=== PATIENT | male | born 1970 | race Two or more races ===

== ENCOUNTER → 2016-10-16 | Outpatient (REF) | payer OTHER ==
[2016-10-16 13:37] LABS: ANION GAP 10 MEQ/L (8-16); BLOOD UREA NITROGEN 17 MG/DL (7-18); CALCIUM LEVEL 9.2 MG/DL (8.5-10.1); CARBON DIOXIDE LEVEL 30 MEQ/L (21-32); CHLORIDE LEVEL 102 MEQ/L (98-107); CHOLESTEROL LEVEL 224 MG/DL (<200); CREATININE FOR GFR 0.85 MG/DL (0.70-1.30); GLOMERULAR FILTRATION RATE > 60.0 (>60); GLUCOSE, FASTING 101 MG/DL (70-105); POTASSIUM SERUM 4.4 MEQ/L (3.5-5.1); SODIUM LEVEL 142 MEQ/L (136-145); TRIGLYCERIDES LEVEL 132 MG/DL (<150)
== END ==
LOC: M SFHCADAM 11:04
PROVIDERS: ATTEND Family Medicine
DX: I10 Essential (primary) hypertension (principal)

== ENCOUNTER → 2016-10-16 | Outpatient (CLI) | payer OTHER ==
--- NOTE | 2016-10-16 11:45 | REP ---
Clinical: Pain and decreased range of motion . Technique: Internal rotation, external rotation, and Y view right shoulder . Findings: No acute fracture or dislocation. The acromioclavicular and glenohumeral joints are intact. No periarticular calcifications or degenerative changes are appreciated. Sub acromial space is normal. Surrounding soft tissues are unremarkable. Impression: Age appropriate shoulder radiographs. No overt arthritic degenerative changes are appreciated by radiographic evaluation. Signed by Luis Alberto Laws MD 10/16/2016 11:37 A
== END ==
LOC: M ADAMS 11:06
PROVIDERS: ATTEND Family Medicine
DX: M25.511 Pain in right shoulder (principal)

== ENCOUNTER → 2017-01-29 | Outpatient (REF) | payer OTHER | LOC: M SFHCADAM 13:54 | PROVIDERS: ATTEND Family Medicine | DX: I10 Essential (primary) hypertension (principal) ==